=== PATIENT | male | born 1975 | race Caucasian/White ===

== ENCOUNTER 2016-08-08 15:41 | Emergency (ER) | payer OTHER ==
--- NOTE | 2016-08-08 16:09 | Emergency Department Record ---
History of Present Illness - General Chief Complaint: Chest Pain Stated Complaint: CHEST DISCOMFORT Time Seen by Provider: 08/08/16 15:44 Source: Patient Mode of Arrival: Ambulatory Limitations: No limitations - History of Present Illness Initial Comments: 41 yo male presents to ED with a CC of discomfort in the left chest and left upper arm for the past 10-14 days. Patient denies "pain" symptoms, but noticed that his chest feels different then normal. 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 Patient has been taking Xarelto since that time. Patient denies previous heart or lung problems. Patient denies SOB, fevers, or cough symptoms. MD Complaint: Chest pain Onset/Timin -: Days(s) Onset: During rest Pain Location: Substernal Pain Radiation: LUE Severity: Moderate Severity scale (1-10): 1 Quality: Other Consistency: Constant Improves With: Nothing Worsens With: Nothing Treatments Prior to Arrival: None - Related Data Home Medications Medication Instructions Recorded Confirmed Last Taken Buspirone HCl [Buspar] 10 mg PO QHS 05/14/15 08/08/16 08/07/16 Pramipexole Di-HCl [Mirapex] 1 mg PO QHS 05/14/15 08/08/16 08/07/16 Rivaroxaban [Xarelto] 20 mg PO DAILY 05/14/15 08/08/16 08/07/16 Allopurinol 100 mg PO DAILY 08/08/16 08/08/16 08/07/16 Atenolol 50 mg PO DAILY 08/08/16 08/08/16 08/07/16 Allergies Allergy/AdvReac Type Severity Reaction Status Date / Time No Known Drug Allergies Allergy Verified 05/14/15 14:44 Travel Screening - Travel/Exposure Within Last 30 Days Have you traveled within the last 30 days?: No - Travel/Exposure Within Last Year Have you traveled outside the [place] in the last year?: No - Additonal Travel Details Have you been exposed to anyone with a communicable illness?: No - Travel Symptoms Symptom Screening: None Review of Systems Constitutional: Denies: Chills, Fever, Malaise, Night sweats Eyes: Denies: Eye discharge, Eye pain ENT: Denies: Congestion, Ear pain, Epistaxis Respiratory: Denies: Cough, Dyspnea Cardiovascular: Reports: Chest pain. Denies: Dyspnea on exertion, Palpitations Endocrine: Denies: Fatigue, Heat or cold intolerance Gastrointestinal: Denies: Abdominal pain, Nausea, Vomiting Genitourinary: Denies: Incontinence, Retention Musculoskeletal: Denies: Arthralgia, Back pain, Gout, Joint swelling Skin: Denies: Bruising, Change in color Neurological: Denies: Abnormal gait, Confusion, Headache, Seizure Psychiatric: Denies: Anxiety Hematological/Lymphatic: Denies: Anemia, Blood Clots Past Medical History - SOCIAL HISTORY Smoking Status: Never smoker Alcohol Use: Occassional Drug Use: None - RESPIRATORY Hx Respiratory Disorders: Yes Hx Pulmonary Embolism: Yes - CARDIOVASCULAR Hx Cardio Disorders: Yes Hx Deep Vein Thrombosis: Yes Hx Hypertension: Yes - NEURO Hx Neuro Disorders: No - GI Hx GI Disorders: No - Hx Genitourinary Disorders: No - ENDOCRINE Hx Endocrine Disorders: No - MUSCULOSKELETAL Hx Musculoskeletal Disorders: No - PSYCH Hx Psych Problems: Yes Hx Anxiety: Yes - HEMATOLOGY/ONCOLOGY Hx Hematology/Oncology Disorders: Yes Hx Blood Disorders: Yes Family Medical History Any Significant Family History?: No Physical Exam - General General Appearance: Alert, Oriented x3, Cooperative, Mild distress Limitations: No limitations - Head Head exam: Atraumatic, Normocephalic, Normal inspection Head exam detail: negative: Abrasion, Contusion, Herron's sign, General tenderness, Hematoma, Laceration - Eye Eye exam: Normal appearance. negative: Conjunctival injection, Periorbital swelling, Periorbital tenderness, Scleral icterus - ENT Ear exam: negative: Auricular hematoma, Auricular trauma Nasal Exam: negative: Active bleeding, Discharge, Dried blood Mouth exam: negative: Drooling, Laceration, Muffled voice, Tongue elevation - Neck Neck exam: Normal inspection. negative: Meningismus, Tenderness - Respiratory Respiratory exam: Normal lung sounds bilaterally. negative: Rales, Respiratory distress, Rhonchi, Stridor - Cardiovascular Cardiovascular Exam: Regular rate, Normal rhythm, Normal heart sounds - GI/Abdominal GI/Abdominal exam: Soft. negative: Rebound, Rigid, Tenderness - Rectal Rectal exam: Deferred - exam: Deferred - Extremities Extremities exam: Normal inspection. negative: Calf tenderness, Pedal edema, Tenderness - Back Back exam: Denies: CVA tenderness (R), CVA tenderness (L) - Neurological Neurological exam: Alert, Normal gait, Oriented X3 - Psychiatric Psychiatric exam: Normal affect, Normal mood - Skin Skin exam: Normal color. negative: Abrasion Type of lesion: negative: abrasion Course Vital Signs 08/08/16 15:45 Temperature 97.9 F Pulse Rate 78 Respiratory 16 Rate Blood Pressure 127/93 Pulse Ox 97 - Reevaluation(s) Reevaluation #1: 08/08/16 16:04 EKG: NSR 72 Normal intervals, indeterminate axis No acute ST-T wave changes Reevaluation #2: 08/08/16 16:46 Labs reviewed and are grossly unremarkable for an acute process. Reevaluation #3: 08/08/16 17:17 CTA is negative for PE, no acute process identified. 11 mm lymph node noted near the diaphragm likely reactive. Patient was updated on all results thus far, will continue to monitor for a 4- hour Troponin at 7:30 PM. Patient agrees with the plan as discussed. Reevaluation #4: 08/08/16 18:37 Patient was reassessed, reports that he no longer wants to wait for repeat Troponin. Risks of leaving prior to completion of his cardiac evaluation were discussed including missed SD, worsening of his current condition, or , patient verbalizes understanding of all risks. Patient was informed that he may return at any time for further evaluation. Patient appears stable for discharge AMA at this time. Medical Decision Making - Lab Data Result diagrams: 08/08/16 16:04 08/08/16 16:04 Disposition Disposition: Other (AMA) Clinical Impression: Atypical chest pain Disposition: Home, Self-Care Condition: (2) Stable Instructions: Chest Pain (ED) Additional Instructions: Return to ED if your symptoms worsen or if you have any concerns. Follow-up with your family doctor in 3-5 days as directed. Forms: Patient Portal Access Time of Disposition: 18:40
[2016-08-08] MEDS ORDERED: 0.9 % SODIUM CHLORIDE 1000ML 1,000 ML IV SCH (16:15)
[2016-08-08 16:18] LABS: BASO % 0.4 % (0-6); EOS % 1.8 % (0-6); GRAN % 61.8 % (47-80); HEMATOCRIT 47.2 % (42.0-52.0); HEMOGLOBIN 16.1 gm/dl (14.0-18.0); LYMPH % 26.3 % (16-45); MEAN CELL VOLUME 88.4 fl (81-97); MEAN CORPUSCULAR HEMOGLOBIN 30.1 pg (27-33); MEAN CORPUSCULAR HGB CONC 34.1 g/dl (32-36); MONO % 9.7 % (0-9); PLATELET COUNT 265 K/uL (130-400); RED BLOOD COUNT 5.34 M/uL (4.40-5.70); RED CELL DISTRIBUTION WIDTH 12.9 % (11.5-14.5); WHITE BLOOD COUNT W/O DIFF 7.2 K/uL (4.2-12.2)
[2016-08-08 16:30] LABS: ALB/GLOB RATIO 1.5 (1.1-1.8); ALBUMIN 4.6 gm/dL (3.5-5.0); ALKALINE PHOSPHATASE 38 U/L (38-126); ALT/SGPT 35 U/L (21-72); ANION GAP 10.4 (7-16); AST/SGOT 29 U/L (17-59); BILIRUBIN,TOTAL 0.59 mg/dL (0.2-1.3); BLOOD UREA NITROGEN 13 mg/dL (9-20); CARBON DIOXIDE 25.6 mmol/L (22-30); CREATINE PHOSPHOKINASE 85 U/L (55-170); EST GLOMERULAR FILTRATION RATE > 60 ml/min; GLUCOSE,RANDOM 82 mg/dL (70-110); TOTAL PROTEIN 7.7 gm/dL (6.3-8.2)
[2016-08-08 16:43] LABS: TROPONIN I < 0.012 ng/mL (0.00-0.034)
--- NOTE | 2016-08-10 14:55 | CT ANGIOGRAM REPORT ---
DATE: 08/08/2016 at 16:48. EXAM: CT ANGIOGRAM OF THE CHEST. HISTORY: "Weird" feeling in left upper chest for 10 to 14 days. A history of pulmonary embolic disease. Patient on Xarelto therapy. TECHNIQUE: Routine CTA examination of the chest was performed with 88 mL of Omnipaque 350 utilized. Maximum-intensity projection reformatted images are generated in the coronal and sagittal planes and reviewed. COMPARISON: Two-view chest radiographic examination dated 12/24/2011. FINDINGS: Opacification of the pulmonary arteries is satisfactory for interpretation. No luminal filling defect is noted in the outflow tract, main arteries, lobar arteries, or proximal segmental arteries to suggest acute pulmonary embolic disease. The heart is not enlarged. No gross thoracic aortic aneurysm, nor evidence of dissection. Evaluation of the aortic root is, however, limited by motion artifact. No mediastinal or hilar mass/lymphadenopathy is seen. A few nonenlarged high right paratracheal lymph nodes are present with the largest measuring 5.5 mm. These are nonspecific, though probably reactive. There is apparent borderline to mild wall thickening of the distal esophagus likely due to incomplete distension; though a mucosal abnormality cannot be excluded. There is a mildly enlarged lymph node in the gastrohepatic ligament region near the gastric fundus measuring 11 mm in short axis diameter. The adrenal glands are not enlarged. Minor patchy opacities are demonstrated within the lung bases, likely relating to atelectasis or, less likely, infiltrate. No gross lung consolidation. No pleural or pericardial effusion. No lytic or blastic bone lesion is seen. IMPRESSION: 1. NO CT EVIDENCE OF ACUTE PULMONARY EMBOLIC DISEASE. 2. APPARENT MILD WALL THICKENING OF THE DISTAL ESOPHAGUS. WHILE THIS LIKELY RELATES TO INCOMPLETE DISTENSION, A MUCOSAL ABNORMALITY CANNOT BE ENTIRELY EXCLUDED. IF CLINICALLY WARRANTED, THIS COULD BE FURTHER EVALUATED WITH DIRECT VISUALIZATION OR FLUOROSCOPIC BARIUM EXAMINATION. 3. MILDLY ENLARGED LYMPH NODE ANTERIOR TO THE DIAPHRAGMATIC BROOKE, IN THE LEFT GASTROHEPATIC REGION. THE ETIOLOGY OF THIS IS UNCERTAIN. WHILE THIS MAY BE REACTIVE, A NEOPLASTIC PROCESS CANNOT BE EXCLUDED. 4. MILD DEPENDENT ATELECTASIS SUSPECTED IN EACH LUNG BASE. JOB NUMBER: [id number] [facility]
== END 2016-08-08 18:59 | disposition left against medical advice (07) ==
LOC: ER 15:41
DX: R07.89 Other chest pain (principal); M79.622 Pain in left upper arm; I10 Essential (primary) hypertension; Z86.711 Personal history of pulmonary embolism; Z79.01 Long term (current) use of anticoagulants
CPT/HCPCS: 99284 ×2; 82550; 85025; 82553; 84484; 80053; 71275; 93005; 93010; Q9967; J7030

== ENCOUNTER 2017-11-23 15:28 | Emergency (ER) | payer OTHER ==
[2017-11-23] MEDS ORDERED: METHYLPREDNISOLONE 80MG/VIAL IM ONE (15:42)
--- NOTE | 2017-11-23 15:49 | Emergency Department Record ---
History of Present Illness - General Chief complaint: Poison zion/oak/sumac exposure Stated complaint: POISON ZION BOTH ARMS AND HEAD Time Seen by Provider: 11/23/17 15:41 Source: Patient Mode of Arrival: Ambulatory Limitations: No limitations - History of Present Illness Initial comments: 42 yo male presents with an itchy rash on the arms mostly. He was cutting wood this week and believes he was in contact with poison zion. He has some areas on the face, neck and legs as well. No other symptoms. No fever or chills. MD complaint: Rash -: Days(s) Location: Head, Face, Neck, LUE, RUE, LLE, RLE Severity: Moderate Quality: Other (itches) Consistency: Constant Improves with: None Worsens with: None Context: Other (cutting wood) Associated symptoms: Itching Treatments Prior to Arrival: OTC topical medication - Related Data Home Medications Medication Instructions Recorded Confirmed Last Taken Modafinil [Provigil] 100 mg PO DAILY 11/23/17 11/23/17 11/21/17 Previous Rx's Medication Instructions Recorded Prednisone [Prednisone 20Mg] 20 mg PO BID #10 tab 11/23/17 Allergies Allergy/AdvReac Type Severity Reaction Status Date / Time No Known Drug Allergies Allergy Verified 11/23/17 15:34 Review of Systems Constitutional: Denies: Chills, Fever, Weakness Eyes: Denies: Eye discharge ENT: Denies: Congestion, Throat pain Respiratory: Denies: Cough Cardiovascular: Denies: Chest pain, Syncope Endocrine: Denies: Fatigue Gastrointestinal: Denies: Abdominal pain, Diarrhea, Nausea, Vomiting Genitourinary: Denies: Dysuria, Frequency, Hematuria Musculoskeletal: Denies: Arthralgia, Back pain Skin: Reports: Rash Neurological: Denies: Headache Psychiatric: Denies: Anxiety Hematological/Lymphatic: Reports: Blood Clots. Denies: Easy bleeding, Easy bruising Past Medical History - SOCIAL HISTORY Smoking Status: Never smoker Drug Use: None - RESPIRATORY Hx Respiratory Disorders: Yes Hx Pulmonary Embolism: Yes - CARDIOVASCULAR Hx Cardio Disorders: Yes Hx Deep Vein Thrombosis: Yes Hx Hypertension: Yes - NEURO Hx Neuro Disorders: No - GI Hx GI Disorders: No - Hx Genitourinary Disorders: No - ENDOCRINE Hx Endocrine Disorders: No - MUSCULOSKELETAL Hx Musculoskeletal Disorders: No - PSYCH Hx Psych Problems: Yes Hx Anxiety: Yes - HEMATOLOGY/ONCOLOGY Hx Hematology/Oncology Disorders: Yes Hx Blood Disorders: Yes Physical Exam - General General Appearance: Alert, Oriented x3, Cooperative, No acute distress Limitations: No limitations - Head Head exam: Atraumatic, Normocephalic. negative: Normal inspection (few areas of rash on the cheeks, near right eye) - Eye Eye exam: Normal appearance. negative: Conjunctival injection - ENT ENT exam: Normal exam, Mucous membranes moist Ear exam: Normal external inspection Nasal Exam: Normal inspection Mouth exam: Normal external inspection - Neck Neck exam: negative: Normal inspection (rash), Lymphadenopathy - Extremities Extremities exam: Full ROM. negative: Normal inspection (rash), Tenderness - Neurological Neurological exam: Alert, Normal gait, Oriented X3. negative: Altered - Psychiatric Psychiatric exam: Normal affect, Normal mood - Skin Skin exam: Rash Distribution of rash: Face, Neck, RUE, LUE, RLE, LLE Description of rash: Crusting, Papular Course - Reevaluation(s) Reevaluation #1: 11/23/17 15:53 Rash is consistent with contact dermatitis Disposition Disposition: Discharge Clinical Impression: Contact dermatitis Disposition: Home, Self-Care Condition: (1) Good Instructions: Poison [place] (ED) Additional Instructions: Take the prescriptions provided today as directed. Call your family doctor. Call to schedule the next available appointment for a recheck. Return to ED if your symptoms worsen or if you have any new concerns. Review the final Emergency Record and test results with your doctor on follow up Prescriptions: Prednisone [Prednisone 20Mg] 20 mg PO BID #10 tab Time of Disposition: 15:44 Quality - Quality Measures Quality Measures: N/A - Blood Pressure Screening Does Patient Have Any of the Following: No Blood Pressure Classification: Pre-Hypertensive BP Reading Systolic Measurement: 122 Diastolic Measurement: 76 Screening for High Blood Pressure: < Pre-Hypertensive BP, F/U Documented > [ G8950] Pre-Hypertensive Follow-up Interventions: Referral to alternative/primary care provider.
== END 2017-11-23 15:58 | disposition home or self-care (01) ==
LOC: ER 15:28
DX: L23.7 Allergic contact dermatitis due to plants, except food (principal); I10 Essential (primary) hypertension
CPT/HCPCS: 96372; 99282; J1040

== ENCOUNTER 2018-06-14 10:38 | Emergency (ER) | payer BC, OTHER ==
[2018-06-14] MEDS ORDERED: METHYLPREDNISOLONE PF 125MG/VIAL IVP ONE (10:59)
--- NOTE | 2018-06-14 11:05 | Emergency Department Record ---
History of Present Illness - General Chief complaint: Rash Stated complaint: SWOLLEN EYE,DENTAL PAIN Time Seen by Provider: 06/14/18 10:49 Source: Patient Mode of Arrival: Ambulatory Limitations: No limitations - History of Present Illness Initial comments: The patient has had a very pruritic rash to his face and arms for about a week. It first started with tooth pain and then some facial pain mainly on the L side. He was then told he had Erysipelas and started on Amox. about a week ago. Approx. 5 days ago he developed an erythematous rash to his face and arms with mild swelling around his eyes. Since the rash has become much worse and is very itchy. He denies any OLENA, SOB, trouble swallowing, fever, cough or [place]. The patient denies any poison karan exposure or any hx of similar issues. MD complaint: Rash Onset/Timin -: Days(s) Severity: Moderate Severity scale (1-10): 6 Quality: Aching Consistency: Constant, Intermittent Improves with: None Worsens with: None - Related Data Previous Rx's Medication Instructions Recorded Prednisone [Prednisone 20Mg] 20 mg PO ASDIR #15 tab 06/14/18 Allergies Allergy/AdvReac Type Severity Reaction Status Date / Time No Known Drug Allergies Allergy Verified 06/14/18 10:49 Travel Screening - Travel/Exposure Within Last 30 Days Have you traveled within the last 30 days?: No - Travel/Exposure Within Last Year Have you traveled outside the [place] in the last year?: No - Additonal Travel Details Have you been exposed to anyone with a communicable illness?: No - Travel Symptoms Symptom Screening: None Review of Systems Constitutional: Denies: Chills, Fever Eyes: Denies: Eye discharge ENT: Denies: Congestion Respiratory: Denies: Cough, Dyspnea Past Medical History - SOCIAL HISTORY Smoking Status: Never smoker Alcohol Use: Rare Drug Use: None - RESPIRATORY Hx Respiratory Disorders: Yes Hx Pulmonary Embolism: Yes (bilateral 2013) - CARDIOVASCULAR Hx Cardio Disorders: Yes Hx Deep Vein Thrombosis: Yes (bilateral) Hx Hypertension: Yes - NEURO Hx Neuro Disorders: No - GI Hx GI Disorders: No - Hx Genitourinary Disorders: No - ENDOCRINE Hx Endocrine Disorders: No - MUSCULOSKELETAL Hx Musculoskeletal Disorders: No - PSYCH Hx Psych Problems: Yes Hx Anxiety: Yes - HEMATOLOGY/ONCOLOGY Hx Hematology/Oncology Disorders: Yes Hx Blood Disorders: Yes ([id number]) Family Medical History Any Significant Family History?: Yes Physical Exam - General General Appearance: Alert, Oriented x3, Cooperative, No acute distress - Head Head exam: Atraumatic, Normocephalic - Eye Eye exam: PERRL, EOMI, Periorbital swelling (mild L > R with no tenderness.). negative: Normal appearance, Conjunctival injection - ENT ENT exam: Normal orophraynx. negative: Normal exam (There is a diffuse mild facial erythema bilaterally with no skin tenderness.) Throat exam: Normal inspection. negative: Tonsillar erythema, Tonsillar exudate - Neck Neck exam: Normal inspection, Full ROM. negative: Tenderness - Respiratory Respiratory exam: Normal lung sounds bilaterally. negative: Respiratory distress - Cardiovascular Cardiovascular Exam: Regular rate, Normal rhythm, Normal heart sounds - Extremities Extremities exam: negative: Normal inspection (There is a diffuse irregular erythematous blanching rash to mainly the forearms bilaterally and minimally the arms. There is mild swelling to the forearms but no tenderness. The rash appears to be most consistent with a drug reaction from the Amox.) - Neurological Neurological exam: Alert. negative: Motor sensory deficit Course Vital Signs 06/14/18 10:42 Temperature 97.8 F Pulse Rate 76 Respiratory 18 Rate Blood Pressure 145/97 Pulse Ox 98 - Reevaluation(s) Reevaluation #1: The patient is doing very well at this time. He has had no further worsening of his symptoms and the itching is improved. I did explain to him the need for oral steroids at home and to return for any worsening symptoms. 06/14/18 12:02 Medical Decision Making - Data Complexity MDM Data: Labs Ordered and/or Reviewed - Lab Data Result diagrams: 06/14/18 11:08 06/14/18 11:08 Disposition Disposition: Discharge Clinical Impression: Dermatitis Disposition: Home, Self-Care Condition: (2) Stable Instructions: Acute Rash (ED) Additional Instructions: Please take an antihistamine for 5 days due to the itching and please continue the Prednisone tomorrow. Return to the ER tomorrow morning if not better and sooner for any worsening symptoms. Please see your family doctor later this week if improved and do not take any more Amox. Prescriptions: Prednisone [Prednisone 20Mg] 20 mg PO ASDIR #15 tab Forms: Patient Portal Access Time of Disposition: 12:05 Quality - Quality Measures Quality Measures: N/A - Blood Pressure Screening View Details: Yes Does Patient Have Any of the Following: No Blood Pressure Classification: Hypertensive Reading Systolic Measurement: 145 Diastolic Measurement: 97 Screening for High Blood Pressure: < First Hypertensive BP, F/U Documented > [ G8950] First Hypertensive Follow-up Interventions: Referral to alternative/primary care provider.
[2018-06-14 11:13] LABS: BASO % 0.5 % (0-6); EOS % 4.2 % (0-6); GRAN % 78.6 % (47-80); HEMATOCRIT 49.5 % (42.0-52.0); HEMOGLOBIN 16.9 gm/dl (14.0-18.0); LYMPH % 9.5 % (16-45); MEAN CELL VOLUME 87.1 fl (81-97); MEAN CORPUSCULAR HEMOGLOBIN 29.8 pg (27-33); MEAN CORPUSCULAR HGB CONC 34.1 g/dl (32-36); MEAN PLATELET VOLUME 9.6 fl (7.4-10.4); MONO % 7.2 % (0-9); PLATELET COUNT 294 K/uL (130-400); RED BLOOD COUNT 5.68 M/uL (4.40-5.70); RED CELL DISTRIBUTION WIDTH 12.8 % (11.5-14.5); WHITE BLOOD COUNT W/O DIFF 10.1 K/uL (4.2-12.2)
[2018-06-14 11:26] LABS: BLOOD UREA NITROGEN 17 mg/dL (6-20); EST GLOMERULAR FILTRATION RATE > 60 mL/min
[2018-06-14 11:27] LABS: TOTAL PROTEIN 7.3 g/dL (6.6-8.7)
[2018-06-14 11:28] LABS: INR 1.3; PARTIAL THROMBOPLASTIN TIME 31.5 SECONDS (24.5-39.1)
[2018-06-14 11:29] LABS: GLUCOSE,RANDOM 108 mg/dL (74-109)
[2018-06-14 11:31] LABS: ALT/SGPT 25 U/L (<41)
[2018-06-14 11:32] LABS: ALBUMIN 4.5 g/dL (4.0-5.0); ALKALINE PHOSPHATASE 31 U/L (40-129); AST/SGOT 26 U/L (10.0-50.0); C-REACTIVE PROTEIN 2.14 mg/dL (<0.5)
[2018-06-14 11:36] LABS: BILIRUBIN,DIRECT < 0.2 mg/dL (0-0.3)
== END 2018-06-14 12:17 | disposition home or self-care (01) ==
LOC: ER 10:38
DX: L27.0 Generalized skin eruption due to drugs and medicaments taken internally (principal); T36.0X5A Adverse effect of penicillins, initial encounter; I10 Essential (primary) hypertension
CPT/HCPCS: 80048; 80076; 85025; 85610; 85730; 86140; 96374; 99284; J2930